=== PATIENT | male | born 1955 | race Caucasian/White ===

== ENCOUNTER 2018-06-02 15:35 | Emergency (ER) | payer MEDICAID, OTHER ==
[~2018-06-02] VITALS: Ht 180.3 cm; Wt 77.1 kg
[2018-06-02 16:00] VITALS: BP 140/85
[2018-06-02] MEDS ORDERED: Ipratropium 0.02% Inh Soln 2.5ml UD HHN SCH (16:00)
[2018-06-02] MEDS ORDERED: Albuterol ud Inhalation HHN SCH (16:00)
--- NOTE | 2018-06-02 16:00 | NUR ---
ED Nurse Note: PT WALKED IN TO ER TODAY FROM HOME. AOX4. PT C/O SOB X 1 WEEK AGO AND HAS BEEN HAVING TO USE HIS INHALER Q1HR FOR RELIEF. ON ASSESSMENT, RR21 @ 96% O2 SATURATION ON RA. NO SIGNS OF RESPIRATORY DISTRESS OR RETRACTIONS NOTED. INSPIRATORY AND EXPIRATORY WHEEZING AUSCULTATED IN ALL LOBES.
--- NOTE | 2018-06-02 16:10 | NUR ---
ED Nurse Note: RT AT BEDSIDE
--- NOTE | 2018-06-02 16:12 | NUR ---
ED Nurse Note: PREDNISONE NOT AVAILABLE IN [facility]. PHARMACY CALLED FOR RESTOCK.
--- NOTE | 2018-06-02 16:25 | Emergency Room Report ---
History of Present Illness General Chief Complaint: Dyspnea/Respdistress Source: Patient Present Illness HPI 62-year-old male presents ED for evaluation. Complaining of cough and congestion 2 weeks. Cough is dry. Has history of emphysema. States he used to smoke. States he's been using his inhaler without significant relief. Denies chest pain. Denies fevers or chills. No other aggravating relieving factors. Denies any other associated symptoms Allergies: Coded Allergies: No Known Allergies (Unverified , 06/02/18) Patient History Past Medical History: HTN, asthma Past Surgical History: none Pertinent Family History: none Social History: Denies: smoking, alcohol use, drug use Immunizations: UTD Reviewed Nursing Documentation: PMH: Agreed; PSxH: Agreed Nursing Documentation-PMH Past Medical History: No History, Except For Hx Hypertension: Yes Hx Asthma: Yes Review of Systems All Other Systems: negative except mentioned in HPI Physical Exam Vital Signs Date Time Temp Pulse Resp B/P (MAP) Pulse Ox O2 Delivery O2 Flow Rate FiO2 06/02/18 15:56 98.2 120 18 152/101 91 Room Air 06/02/18 16:12 21 Sp02 EP Interpretation: reviewed, normal General Appearance: no apparent distress, alert, GCS 15, non-toxic Head: normocephalic, atraumatic Eyes: bilateral eye normal inspection, bilateral eye PERRL ENT: hearing grossly normal, normal pharynx, no angioedema, normal voice Neck: full range of motion, supple/symm/no masses Respiratory: chest non-tender, normal breath sounds, speaking full sentences, wheezing Cardiovascular #1: regular rate, rhythm, no edema Cardiovascular #2: 2+ carotid (R), 2+ carotid (L), 2+ radial (R), 2+ radial (L) , 2+ dorsalis pedis (R), 2+ dorsalis pedis (L) Gastrointestinal: normal bowel sounds, non tender, soft, non-distended, no guarding, no rebound Rectal: deferred Genitourinary: normal inspection, no CVA tenderness Musculoskeletal: back normal, gait/station normal, normal range of motion, non- tender Neurologic: alert, oriented x3, responsive, motor strength/tone normal, sensory intact, speech normal Psychiatric: judgement/insight normal, memory normal, mood/affect normal, no suicidal/homicidal ideation Reflexes: 3+ bicep (R), 3+ bicep (L), 3+ tricep (R), 3+ tricep (L), 3+ knee (R) , 3+ knee (L) Skin: normal color, no rash, warm/dry, well hydrated Lymphatic: no adenopathy Medical Decision Making Diagnostic Impression: Primary Impression: COPD (chronic obstructive pulmonary disease) Qualified Codes: J44.9 - Chronic obstructive pulmonary disease, unspecified Additional Impression: Abnormal CXR (chest x-ray) ER Course Hospital Course 62 yo M presents with persistent cough. h/o emphysema Differential diagnoses include: URI, bronchitis, asthma/COPD, pneumonia Clinical course Patient placed on stretcher. After initial history and physical I ordered CXR, prednisone and nebulizer treatment. On reassessment cough and wheezing has improved. Chest x-ray shows an area in the left lower lung field which could be either fat or infiltrate or mass per radiology Discussed these findings with the patient. Given history of COPD and smoking I explained the patient should follow-up with his PMD for the potential consideration of malignancy. Patient will follow-up with his PMD for potential outpatient CT Given copy of CXR report. Safe for discharge or close patient outpatient follow -up. Patient states he has a PMD Diagnosis - COPD, abnormal CXR Stable and discharged home with prescriptions for Rx amoxicillin, prednisone, promethazine/codeine, albuterol. Instructed to followup with PMD. Return to ED if symptoms recur or worsen Chest X-Ray Diagnostic Results Chest X-Ray Diagnostic Results : Chest X-Ray Ordered: Yes # of Views/Limited/Complete: 1 View Indication: Other - cough EP Interpretation: Yes Interpretation: no pneumothorax, other - hyperinflated lungs, ? haziness L lower lung field Impression: Other - COPD Electronically Signed by: Electronically signed by Nabil Kirkland MD Last Vital Signs Date Time Temp Pulse Resp B/P (MAP) Pulse Ox O2 Delivery O2 Flow Rate FiO2 06/02/18 16:12 108 18 95 Room Air 21 06/02/18 16:00 98.4 140/85 Status: improved Disposition: HOME, SELF-CARE Condition: Stable Scripts Prednisone* (PREDNISONE*) 20 Mg Tablet 40 MG ORAL DAILY, #10 TAB Prov: Nabil Kirkland MD 06/02/18 Albuterol Sulfate* (ALBUTEROL SULFATE MDI*) 8.5 Gm Hfa.aer.ad 2 PUFF INH Q4H, #1 INH 0 Refills Prov: Nabil Kirkland MD 06/02/18 Codeine/Promethazine Hcl* (PROMETHAZINE-CODEINE SYRUP*) 118 Ml Syrup 5 ML ORAL Q6H PRN for For Cough, #118 ML 0 Refills Prov: Nabil Kirkland MD 06/02/18 Amoxicillin* (AMOXIL*) 500 Mg Capsule 500 MG ORAL THREE TIMES A DAY, #21 CAP Prov: Nabil Kirkland MD 06/02/18 Nabil Kirkland MD Jun 02, 2018 16:25
--- NOTE | 2018-06-02 16:35 | NUR ---
ED Nurse Note: PHARMACY RECALLED FOR PREDNISONE [facility].
--- NOTE | 2018-06-02 16:41 | Diagnostic Imaging Report ---
Indication: Cough Technique: One view of the chest Comparison: none Findings: There is a faint opacity lateral to the inferior left heart border overlying the costophrenic sulcus. The remainder of the lungs and pleural spaces are clear. The heart size is normal. Impression: No acute process Faint left lateral basilar opacity. Suspect that this represents a prominent cardiophrenic fat pad, but mass or infiltrate not completely excludable. Consider further evaluation with CT scan Findings discussed by phone with Dr. Kirkland in the emergency room at the time of interpretation
[2018-06-02] MEDS ORDERED: PREDNISONE20 MG ORAL (16:55)
[2018-06-02] MEDS ORDERED: ALBUTEROL SULF8.5 GM INH (16:55)
[2018-06-02] MEDS ORDERED: AMOXICILLIN500 MG ORAL (16:55)
[2018-06-02] MEDS ORDERED: PROMETHAZINE-C118 M1 ORAL (16:55)
[2018-06-02 17:05] VITALS: BP 132/86
--- NOTE | 2018-06-02 17:07 | NUR ---
ED Nurse Note: PT LAYING PEACEFULLY IN BED IN NAD. AOX4. PRESCRIPTIONS AND DISCHARGE PAPERWORK EXPLAINED TO PT. PT VERBALIZES UNDERSTANDING AND ALL QUESTIONS WERE ANSWERED. PRESCRIPTIONS AND DISCHARGE PAPERWORK GIVEN TO PT AND ID WRISTBAND REMOVED. PT WALKED OUT OF ER WITH STEADY GAIT AND ALL BELONGINGS.
== END 2018-06-02 17:07 | disposition home or self-care (01) ==
LOC: EMR 16:24
DX: J44.9 Chronic obstructive pulmonary disease, unspecified (principal); I10 Essential (primary) hypertension; J45.909 Unspecified asthma, uncomplicated; R91.8 Other nonspecific abnormal finding of lung field
CPT/HCPCS: 71045; 94640; 99284; J7512